=== PATIENT | male | born 1995 | race Two or more races ===

== ENCOUNTER 2017-09-23 08:24 | Outpatient (CLI) | payer OTHER | END 2017-09-23 08:33 | disposition home or self-care (01) | LOC: RAD 08:24 | DX: M54.5 Low back pain (principal) ==

== ENCOUNTER → 2019-11-18 09:46 | Outpatient (CLI) | payer OTHER | END | disposition home or self-care (01) | LOC: LAB 09:46 | DX: D50.8 Other iron deficiency anemias (principal); I10 Essential (primary) hypertension; D51.1 Vitamin B12 deficiency anemia due to selective vitamin B12 malabsorption with proteinuria; D51.0 Vitamin B12 deficiency anemia due to intrinsic factor deficiency; E03.8 Other specified hypothyroidism; E06.3 Autoimmune thyroiditis; D68.8 Other specified coagulation defects; E56.1 Deficiency of vitamin K; F33.8 Other recurrent depressive disorders ==

== ENCOUNTER 2019-11-18 10:43 | Outpatient (CLI) | payer OTHER | END 2019-11-18 11:06 | disposition home or self-care (01) | LOC: SONOGRAMA 10:43 | DX: D68.8 Other specified coagulation defects (principal); F33.8 Other recurrent depressive disorders; E06.3 Autoimmune thyroiditis; E03.8 Other specified hypothyroidism ==

== ENCOUNTER 2021-09-12 11:25 | Emergency (ER) | payer OTHER ==
[~2021-09-12] VITALS: Ht 175.3 cm; Wt 88.5 kg
== END 2021-09-12 18:04 | disposition home or self-care (01) ==
LOC: ER 11:25
DX: L03.116 Cellulitis of left lower limb (principal); L03.115 Cellulitis of right lower limb; R60.0 Localized edema; Z11.52 Encounter for screening for COVID-19